=== PATIENT | female | born 1960 | race Caucasian/White ===

== ENCOUNTER 2021-11-25 15:00 | Emergency (ER) | payer BC, SELFPAY ==
[2021-11-25 15:01] VITALS: BP 153/87; PULSE 64; RESP 18; TEMP 36.6; O2SAT 96; BMI 24.1
--- NOTE | 2021-11-25 15:40 | ED.VIS.GI ---
HPI HPI - GI History of Present Illness Chief Complaint: GI Bleed Detail of Chief Complaint: Rectal bleeding today around 1:00. Prior history. Informant: patient Abdominal Pain/Flank Pain Onset: Today and Hours Context: Sudden Onset Timing: Intermittent Current Severity: Mild Maximum Severity: Mild Worsened by: Nothing Relieved by: Nothing Nausea/Vomiting/Emesis GI Symptom: Negative for Nausea or Vomiting Diarrhea/Melena/Hematochezia Stool Quality: Positive for Loose Associated Symptoms Associated Symptoms: Negative for Dysuria, Frequency or Hematuria Narrative Narrative: 61-year-old female status postcholecystectomy, appendectomy and hysterectomy. On no blood thinners or other medications. Denies past medical history. States today around 1:00 started having some rectal bleeding. No clots. Does not feel lightheaded or dizzy. At this within the last year without any significant work-up. Had a colonoscopy 20 years ago or so. Denies any blood thinners are on any medications. Denies any melena or hematemesis. Denies any fever. Prior similar symptoms: Yes Recent Illness/Hospitalization: No PFSH PFSH Medical History no medical history no medical history Allergy/AdvReac Type Severity Reaction Status Date / Time Sulfa (Sulfonamide Allergy Hives Verified 11/25/21 15:03 Antibiotics) Social History Smoking Status: Former smoker ROS ROS ED ROS Narrative Rectal bleeding. Review of Systems ROS Unobtainable: Denies due to encephalopathy Constitutional Constitutional ED: Denies chills or fever(s) Cardiovascular Cardiovascular: Denies chest pain Respiratory/Chest Respiratory/Chest: Denies cough or dyspnea Gastrointestinal Gastrointestinal: Reports abdominal pain and diarrhea; Denies constipation, melena, nausea or vomiting Genitourinary Genitourinary ED: Denies dysuria or hematuria Musculoskeletal Musculoskeletal: Denies arthralgias Integumentary Denies abscess Neurologic Neurologic: Denies headache(s) Psychiatric Psychiatric: Denies anxiety Endocrine Endocrinology: Denies polydipsia Hematologic/Lymphatic Hematologic/Lymphatic: Denies easy bleeding Allergic/Immunologic Allergic/Immunologic ED: Denies mouth swelling or tongue swelling EXAM Physical Exam Narrative Exam Narrative: Well-appearing 61-year-old female. Vital signs stable afebrile. H EENT exam unremarkable. Moist Riis members. Neck nontender lymphadenopathy. Lungs clear to auscultation. Heart regular rhythm rate about 65 no murmur. Abdomen soft nondistended normal bowel sounds no peritoneal signs. Moving all 4 extremities. Nontender. No edema. No bruising. Back nontender. Neurologic exam normal. All rectal exam performed with female nurse present in the room. She has several external hemorrhoids. They are not thrombosed. They are not actively bleeding. There is no dried blood. On rectal exam there is no stool and no bright red blood or melena. Const Vital Signs: 11/25/21 15:01 Temperature 97.9 F Temperature Source Temporal Pulse Rate 64 Respiratory Rate 18 Blood Pressure 153/87 H Blood Pressure Mean 109 Pulse Ox 96 Oxygen Delivery Method Room Air Positive well nourished and well developed; Negative for obese, cachectic, contractures or unkempt General Appearance ED: well developed and NAD; Negative for unkempt, cachectic, contractures or pallor Nutritional Appearance: Negative for cachectic or obese HEENT Reports moist mucous membranes normocephalic and atraumatic; Negative for trauma or tenderness Eyes PERRL and EOMs intact bilaterally General Eye ED: Negative for pale conjunctiva or scleral icterus Neck no lymphadenopathy, supple and no JVD General: Negative for tenderness Carotids: Negative for other Lymph Lymphatic: Negative for other Resp normal respiratory effort and clear to auscultation bilaterally Effort and Inspection: Negative for respiratory distress Auscultation: Negative for rales, rhonchi or wheezes Cardio regular rate, regular rhythm, S1 normal heart sound, S2 normal heart sound and no murmurs Rate: Negative for bradycardia or tachycardic Rhythm: Negative for abnormal rhythm GI non-tender, non-distended and no masses Inspection: Negative for abdominal distention Auscultation: normoactive bowel sounds Palpation: soft; Negative for tender Back/Spine no CVA tenderness General Back: Negative for CVA tenderness Cervical Spine: Negative for cervical spine tenderness Thoracic Spine / Upper Back: Negative for thoracic spinal tenderness Lumbar Spine / Lower Back: Negative for lumbar spinal tenderness Coccyx: Negative for other Extremity full ROM General Extremety ED: Negative for edema or tenderness General Extremity: Negative for edema Neuro CN's II-XII intact bilaterally and moves all extremities Sensorium / Orientation: alert, oriented to person, oriented to place and oriented to time; Negative for orientation impaired, confused, lethargic or stuporous Motor Exam: strength 5/5 throughout Psych mental status grossly normal and thought process normal Appearance: Negative for unkempt Attitude: No agitated Mood & Affect: Negative for depressed, anxious or tearful Skin no wounds General Skin Exam: Negative for jaundice or pallor Lesions: no lesions Rashes: no rashes Trauma: Negative for abrasion Nails: Negative for discolored MDM MDM MDM Narrative Medical decision making narrative: 61-year-old female with rectal bleeding. Sounds like a lower GI bleed. May be hemorrhoids versus colon versus other. Screening labs being obtained. Vital signs are stable. Repeat exam patient doing well. We discussed her lab test. She will be discharged home. Return if heavier bleeding, clots she will be discharged home. Return if heavier bleeding, clots or feels lightheaded or dizzy. Or feels lightheaded and dizzy. Outpatient follow-up with either GI or general surgery on-call. She may need colonoscopy. Lab Data Attestation: I reviewed the patient's lab results. Lab results narrative: CBC normal white count of 5. H&H of 14.5 and 43. Labs: Laboratory Results - last 24 hr 11/25/21 16:26 WBC 5.5 RBC 4.61 Hgb 14.5 Hct 43.6 MCV 94.6 MCH 31.5 MCHC 33.3 RDW Std Deviation 43.7 RDW Coeff of Yasir 12.6 Plt Count 257 MPV 9.7 Immature Gran % (Auto) 0.200 Neut % (Auto) 58.5 Lymph % (Auto) 27.6 Madison % (Auto) 10.7 H Eos % (Auto) 2.5 Baso % (Auto) 0.5 Absolute Neuts (auto) 3.2 Absolute Lymphs (auto) 1.52 Nucleated RBC % 0 Discharge Plan Triage Chief Complaint: GI Bleed ED Provider: Dominic Roy Dx/Rx/DC Orders Clinical Impression: Acute lower gastrointestinal bleeding Instructions: ED Hemorrhoids, ED Lower GI Bleeding (Stable) Primary Care Provider: Care Physician,No Primary Referrals: Asif Reynolds MD [Med Staff - Active Staff] - As soon as possible Friend,Jb DO [Med Staff - Active Staff] - As soon as possible NOT,DEFINED [Non-Staff] - Activity Restrictions/Additional Instructions: Your blood counts are normal. You have an external hemorrhoid but is not bleeding. You need to follow-up either with a GI doctor which is Dr. Carbone or a general surgeon which is Dr. Asif Reynolds for further evaluation and you may need a colonoscopy. Return if heavier bleeding or clots or if you feel lightheaded or dizzy. Disposition Disposition: Home, Self Care
[2021-11-25 16:46] LABS: Absolute Lymphocyte Count 1.52 X10^3/uL (0.83-4.51); Absolute Neutrophil Count 3.2 X10^3/uL (2.0-7.7); Basophil# 0.03 X10^3/uL; Basophil% 0.5 % (0-1); Eosinophil# 0.14 X10^3/uL; Eosinophils% 2.5 % (0-5); Hematocrit 43.6 % (37-47); Hemoglobin 14.5 g/dL (12.0-15.0); Lymphocyte # 1.52 X10^3/ul (0.83-4.51); Lymphocyte % 27.6 % (19-41); Mean Corp Hgb Conc 33.3 g/dL (32-36); Mean Corpuscular Hgb 31.5 pg (27.0-32.0); Mean Corpuscular Volume 94.6 fL (81-99); Mean Platelet Vol. 9.7 fl (6.2-12.0); Monocyte# 0.59 X10^3/uL; Monocyte% 10.7 % (0-10); NRBC Flagged by Analyzer 0 % (0-5); Neutrophil # 3.21 X10^3/uL (2.7-7.7); Neutrophil % 58.5 % (47-70); Platelet Count 257 K/mm3 (150-450); RBC Distribution Width CV 12.6 % (11.6-14.6); RBC Distribution Width SD 43.7 fl (35.1-43.9); Red Blood Count 4.61 M/mm3 (4.2-5.4); White Blood Count 5.5 K/mm3 (4.4-11.0)
--- NOTE | 2021-11-25 17:03 | CM.ED ---
SW met with patient. Per tracker patient has no insurance. TONI provided patient with [facility] Healthcare Directory. Patient reports that her MD Sunil Elliott retired and she has an appointment with a new provider, En[facility] in February. Resource provided. TONI remains available if further needs arise. Plan: Resources provided Melissa BROWNING
[2021-11-25 17:08] VITALS: RESP 16
[2021-11-25 17:28] LABS: AST(SGOT) 26 U/L (15-37); Alanine Aminotransfer ALT/SGPT 42 U/L (13-56); Alkaline Phosphatase 87 U/L (45-117); Anion Gap 6 (5-15); BUN 19 mg/dL (7-18); BUN/Creat Ratio 28.1 RATIO (10-20); Calcium,Total 9.4 mg/dL (8.5-10.1); Chloride 105 mmol/L (98-107); Creatinine, Serum 0.68 mg/dL (0.55-1.02); EST Glomerular Filtration Rate 94 mL/min (>60); Est Glom Filt Rate - Afr Amer 113 mL/min (>60); Estimated Creatinine Clearance 66.97 ml/min; Glucose 92 mg/dL (74-106); Potassium 4.1 mmol/L (3.5-5.1); Sodium Level 138 mmol/L (136-145)
== END 2021-11-25 17:10 | disposition home or self-care (01) ==
PROVIDERS: Emergency Provider Emergency Medicine; Visit Provider Emergency Medicine
DX: K92.2 Gastrointestinal hemorrhage, unspecified (principal); R10.9 Unspecified abdominal pain; R19.7 Diarrhea, unspecified; Z87.891 Personal history of nicotine dependence; Z90.49 Acquired absence of other specified parts of digestive tract
CPT/HCPCS: 80053; 85025; 99282; A4216

== ENCOUNTER → 2022-02-14 | Outpatient (CLI) | payer BC, SELFPAY ==
[2022-02-14 15:07] LABS: Absolute Lymphocyte Count 1.62 X10^3/uL (0.83-4.51); Absolute Neutrophil Count 2.9 X10^3/uL (2.0-7.7); Basophil# 0.01 X10^3/uL; Basophil% 0.2 % (0-1); Eosinophil# 0.08 X10^3/uL; Eosinophils% 1.5 % (0-5); Hematocrit 41.2 % (37-47); Hemoglobin 13.8 g/dL (12.0-15.0); Lymphocyte # 1.62 X10^3/ul (0.83-4.51); Lymphocyte % 31.2 % (19-41); Mean Corp Hgb Conc 33.5 g/dL (32-36); Mean Corpuscular Hgb 31.2 pg (27.0-32.0); Mean Corpuscular Volume 93.2 fL (81-99); Mean Platelet Vol. 10.1 fl (6.2-12.0); Monocyte# 0.58 X10^3/uL; Monocyte% 11.2 % (0-10); NRBC Flagged by Analyzer 0 % (0-5); Neutrophil % 55.7 % (47-70); Platelet Count 243 K/mm3 (150-450); RBC Distribution Width CV 12.4 % (11.6-14.6); RBC Distribution Width SD 42.6 fl (35.1-43.9); Red Blood Count 4.42 M/mm3 (4.2-5.4); White Blood Count 5.2 K/mm3 (4.4-11.0)
[2022-02-14 15:40] LABS: ALB/GLOB Ratio 1.2 RATIO (0.9-2.4); AST(SGOT) 29 U/L (15-37); Alanine Aminotransfer ALT/SGPT 51 U/L (13-56); Albumin, Serum 4.1 g/dL (3.2-5.0); Alkaline Phosphatase 90 U/L (45-117); Anion Gap 8 (5-15); BUN 11 mg/dL (7-18); BUN/Creat Ratio 16.6 RATIO (10-20); Calcium,Total 9.7 mg/dL (8.5-10.1); Chloride 105 mmol/L (98-107); Cholesterol 276 mg/dL (200); Creatinine, Serum 0.66 mg/dL (0.55-1.02); EST Glomerular Filtration Rate 96 mL/min (>60); Est Glom Filt Rate - Afr Amer 116 mL/min (>60); Globulin 3.5 g/dL (2.2-4.2); Glucose 85 mg/dL (74-106); High Density Lipoprotein 65 mg/dL; Potassium 3.9 mmol/L (3.5-5.1); Protein, Total 7.6 g/dL (6.4-8.2); Sodium Level 139 mmol/L (136-145); Thyroid Stim Hormone (TSH) 7.95 uIU/mL (0.358-3.74); Triglycerides 342 mg/dL; Very Low Density Lipoprotein 68 mg/dL (5-40)
[2022-02-15 14:22] LABS: T4 Free Direct 0.76 ng/dL (0.76-1.46)
== END | disposition home or self-care (01) ==
LOC: MFPLAB 12:05
PROVIDERS: PCP Family Medicine; Visit Provider Family Medicine
DX: Z00.00 Encounter for general adult medical examination without abnormal findings (principal); R79.89 Other specified abnormal findings of blood chemistry; K21.9 Gastro-esophageal reflux disease without esophagitis
CPT/HCPCS: 36415; 80053; 80061; 84432; 84439; 84443; 85025; 86376; 86800

== ENCOUNTER → 2022-03-07 | Outpatient (CLI) | payer BC, SELFPAY ==
--- NOTE | 2022-03-07 13:50 | ECHOD_ITS ---
Reason For Study: MURMUR Procedure This was a 2D Doppler, Color Flow transthoracic echocardiogram. Exam performed in department. Left Ventricle Normal LV size. Left ventricular systolic function is normal. The estimated ejection fraction is 55 %. Stage 1 diastolic dysfunction. No regional wall motion abnormalities noted. Right Ventricle Normal RV size. Normal systolic function. Atria Normal left atrium. Normal right atrium. Mitral Valve Normal mitral valve. Tricuspid Valve Normal tricuspid valve. Aortic Valve Trisinus/trileaflet aortic valve. Mild focal aortic valve calcification. Pulmonic Valve Normal pulmonic valve. Great Vessels Normal aortic root. The pulmonary artery is normal size. Normal inferior vena cava. Pericardium/Pleural No pericardial effusion. MMode/2D Measurements & Calculations LVIDd: 3.8 cm IVSd: 0.96 cm Ao root diam: 2.9 cm LVIDs: 2.4 cm LVPWd: 0.72 cm RVDd: 2.6 cm FS: 36.7 % LAV(MOD-bp): 25.1 ml LVAd ap4: 23.2 cm2 LVAd ap2: 20.1 cm2 LAV(MOD-bp) Indexed: 15.7 ml/m2 LVLd ap4: 7.8 cm LVLd ap2: 7.3 cm LAV(MOD-sp2): 28.4 ml EDV(MOD-sp4): 59.2 ml EDV(MOD-sp2): 47.0 ml LAV(MOD-sp4): 19.9 ml EDV(sp4-el): 58.5 ml EDV(sp2-el): 47.2 ml LVAs ap4: 13.9 cm2 LVAs ap2: 11.7 cm2 LVLs ap4: 6.3 cm LVLs ap2: 5.7 cm ESV(MOD-sp4): 27.3 ml ESV(MOD-sp2): 20.9 ml ESV(sp4-el): 25.8 ml ESV(sp2-el): 20.4 ml EF(MOD-sp4): 53.9 % EF(MOD-sp2): 55.6 % EF(sp4-el): 55.8 % SV(MOD-sp4): 31.9 ml SV(MOD-sp2): 26.1 ml SV(sp4-el): 32.7 ml LA dimension(2D): 2.8 cm LA A4 area: 10.4 cm2 RA A4 area: 10.9 cm2 Time Measurements MV dec time: 0.27 sec Doppler Measurements & Calculations MV E max darien: 74.6 cm/sec Med Peak E' Darien: 9.8 cm/sec MV A max darien: 91.1 cm/sec E/E' med: 7.6 MV dec slope: 278.5 cm/sec2 MV E/A: 0.82 Ao V2 max: 142.1 cm/sec LV V1 max: 90.9 cm/sec PA V2 max: 83.2 cm/sec Ao max P.1 mmHg LV V1 max P.3 mmHg PA max PG (full): 1.5 mmHg TR max darien: 217.1 cm/sec TR max P.9 mmHg ECHO/Echo Complete Interpretation Summary Normal LV size. Left ventricular systolic function is normal. The estimated ejection fraction is 55 %. Stage 1 diastolic dysfunction. Mild focal aortic valve calcification. Ordering Physician: Dylan Hansen Referring Physician: Dylan Hansen Performed By: Mónica Peña
== END | disposition home or self-care (01) ==
LOC: CVS 13:48
PROVIDERS: PCP Family Medicine; Visit Provider Family Medicine
DX: R01.1 Cardiac murmur, unspecified (principal)
CPT/HCPCS: 93306

== ENCOUNTER → 2022-03-09 | Outpatient (CLI) | payer BC, SELFPAY ==
--- NOTE | 2022-03-09 16:30 | CT_ITS ---
ACR Level 3 findings have been noted. An addendum which confirms receipt of the report will follow. INDICATION: Rectal bleeding, change in bowel pattern -- oral and IV EXAMINATION: CT ABDOMEN AND PELVIS WITH CONTRAST - CT Abdomen And Pelvis W/ Contrast Injection TECHNIQUE: Helically acquired images were obtained of the abdomen and pelvis following IV contrast. A radiation dose optimization technique was used for this scan. IV Contrast dosage and agent: 100 cc Isovue-370 Oral contrast: Redicat COMPARISON: None. FINDINGS: LOWER CHEST: Lung bases are clear. No cardiomegaly or pericardial effusion. LIVER: Homogeneous. No focal mass. GALLBLADDER AND BILIARY TREE: Prior cholecystectomy. No intra- or extrahepatic biliary ductal dilation. PANCREAS: No focal cystic or solid mass. SPLEEN: Normal size without focal cystic or solid mass. ADRENAL GLANDS: No nodules. KIDNEYS AND URETERS: Normal renal size and position. No hydronephrosis. PERITONEUM: No ascites or free air. No other fluid collection. BOWEL: Prior appendectomy. 6 cm ball of tightly packed contents in the stomach. Prominent thickening of the rugal folds in the distal gastric body and antrum. No stomach or bowel distension. Enteric contrast reaches the cecum. No focal inflammatory change. LYMPH NODES: No enlarged mesenteric or retroperitoneal lymph nodes. VESSELS: Aorta is non-dilated. URINARY BLADDER: Unremarkable. REPRODUCTIVE ORGANS: No pelvic masses. ABDOMINAL WALL: No discrete abdominal or pelvic wall hernia. BONES: Normal thoracolumbar vertebral alignment. CT/Abdomen/Pelvis WITH Contrast IMPRESSION: 1. Prominent thickening of the distal gastric rugal folds may represent acute gastroenteritis or less common entities such as giant hypertrophic gastritis, stomach cancer, Chiki-Lennon syndrome. Recommend upper endoscopy. 2. Normal appearance of the rectum. Electronically Signed: Thomas Arthur MD at 17:32 EST ,
== END | disposition home or self-care (01) ==
PROVIDERS: PCP Family Medicine; Visit Provider Nurse Practitioner Adult Health
DX: K62.5 Hemorrhage of anus and rectum (principal); R19.4 Change in bowel habit
CPT/HCPCS: 74177; Q9967

== ENCOUNTER 2022-05-01 12:27 | Day surgery (SDC) | payer BC, SELFPAY ==
[2022-05-01] VITALS (8 sets, daily range): BP systolic 110–137; BP diastolic 47–72; PULSE 51–73; RESP 16; TEMP 36.4–37.1; O2SAT 99–100; BMI 22.6
[2022-05-01] MEDS: Lactated Ringers 1,000 ML 15 ML IV (12:56)
--- NOTE | 2022-05-01 14:15 | IMM_PTH ---
PATIENT: HIMA RICHARDSON LOC: EN U#:[id number] AGE/SX: 61/F ROOM: RE05/01/[address]: Dr. Jb Carbone DO : 1960 BED: DIS: 05/01/2022 SPEC #: [id number] RECD: 05/02/22 09:06 STATUS: ZANA ADAM #: [id number] ROBBIE: 05/01/22 14:[address]: Jb Carbone DEPT: IMMUNOHISTOCHEMISTRY RECD BY: Danita York ENTERED: 05/02/22 09:06 SP TYPE: IMMUNO OTHR DR: Dr. Dylan Hansen MD Tissues: A - Stomach, NOS Procedures: H Pylori (initial) PHYSICIAN & INSTITUTION [place] [address] SPECIMEN INFORMATION: Tissue Source: A ? Gastric antrum Clinical Info: Rectal bleeding, food bolus Specimen Number: [id number] CPT code: 65508 METHODOLOGY: Deparaffinized sections of prefer/formalin-fixed tissue or PAP/DQ stained slides are incubated with monoclonal/polyclonal antibodies/oligonucleotide probes. Localization is made via biotin free immunoperoxidase method. Appropriate controls are performed and reacted as expected. Results on target cell population are indicated in the following table: RESULTS: ANTIBODY / CLONE RESULT Block A H Pylori (polyclonal) negative These tests were developed and their performance characteristics determined by [facility]. They may not have been cleared or approved by the U.S. Food and Drug Administration. The FDA has determined that such clearance or approval is not necessary. The above immunohistochemical/dualISH markers are ordered and reviewed by the Pathologist. INTERPRETATION: A. Gastric antrum, biopsy: Negative for Helicobacter pylori organisms. SJ:ciara 05/03/2022
--- NOTE | 2022-05-01 14:15 | COLBX_PTH ---
PATIENT: HIMA RICHARDSON LOC: EN U#:[id number] AGE/SX: 61/F ROOM: RE05/01/[address]: Dr. Jb Carbone DO : 1960 BED: DIS: 05/01/2022 SPEC #: [id number] RECD: 05/02/22 06:42 STATUS: ZANA ADAM #: [id number] ROBBIE: 05/01/22 14:[address]: Jb Carbone DEPT: SURGICAL PATHOLOGY RECD BY: Lulu Mahan ENTERED: 05/02/22 08:09 SP TYPE: COLON BX OTHR DR: Dr. Dylan Hansen MD Tissues: A - Gastric mucous membrane B - Esophagus, NOS C - Sigmoid colon biopsy Procedures: Special Stain Group II Surgery Specimen Level IV Alcian Blue/PAS (control) HEADER OPERATION: Colonoscopy, EGD ([facility]) with biopsy and polypectomy PRE-OP DIAGNOSIS: Rectal bleeding, food bolus TISSUE SUBMITTED: A - Gastric antrum for H. pylori and path, B - Distal esophagus, C - Polyp sigmoid MICROSCOPIC DIAGNOSIS A. Gastric antrum, biopsy: Mild gastritis. See microscopic description and comment. B. Distal esophagus, biopsy: A fragment of gastric mucosa with chronic inflammation. Intestinal metaplasia (goblet cell metaplasia) not identified. See comment. C. Polyp sigmoid, polypectomy: Tubular adenoma. SJ:ciara 05/03/2022 COMMENT A. The results of immunohistochemistry for Helicobacter pylori will be reported separately ([id number]). B. Alcian blue/PAS stain with matched control is used in the evaluation of the specimen. MICROSCOPIC DESCRIPTION Slides are reviewed. A. The specimen shows fragments of gastric mucosa with chronic inflammatory cell infiltrates in the lamina propria consisting of lymphocytes and plasma cells, consistent with mild chronic gastritis. GROSS DESCRIPTION A - Received in fixative is one container labeled with the patient's name and designated biopsy gastric antrum. The specimen consists of two irregular fragments of light rice soft tissue that in aggregate measure 0.4 x 0.3 x 0.1 cm. The specimen is totally submitted in one cassette. B - Received in fixative is one container labeled with the patient's name and designated biopsy distal esophagus. The specimen consists of one irregular fragment of light rcie soft tissue that measures 0.3 x 0.3 x 0.1 cm. The specimen is totally submitted in one cassette. C - Received in fixative is one container labeled with the patient's name and designated polyp sigmoid. The specimen consists of a rice-pink polyp measuring 0.6 x 0.5 x 0.3 cm. The specimen is totally submitted in one cassette. / SJ:ciara 05/02/2022 TC:1 CPT: 55163 x3, 28500
--- NOTE | 2022-05-01 15:09 | HP.PCM_ITS ---
History and Physical Date of Admission: 05/01/22 61 F who presents to the office today to establish with GI in order to obtain colonoscopy. General surgeon Dr Reynolds attempted colonoscopy in 11/2021 but had to abort due to tortuous colon. He did EGD 12/04/21--small hiatal hernia, gastritis; bxs reactive gastropathy, neg H pylori. Attempted colonoscopy, scope was advanced to sigmoid colon, procedure aborted due to tortuous colon. He reports quality of bowel prep was good. She had dulcolax and miralax prep--had severe abd pain and lower back pain in the night before colonoscopy. [place] poorly for 2 wks after endoscopies, nausea, belly pain--requests work note for after colonoscopy. Works at [employer]. Was seen at ED 11/25/21 for rectal bleeding. Gets lower abd cramping when the bleeding occurs. Describes flare ups, blood in stool, nausea and headache and sometimes lightheaded. Nausea resolves when not having bowel issues. Every morning she has multiple BMs, can be thinner than normal, or can be diarrhea. Hemorrhoids are exacerbated from frequent BMs. GI symptoms began with COVID infection in July 2021. Had horrible GI symptoms with COVID: nausea, vomiting, diarrhea, had blood per rectum then. No heartburn, acid reflux, dysphagia. Eats smaller more frequent meals in order to decrease diarrhea. Normal appetite. Denies early satiety. Eating bland foods, not really helping. No change in her weight. Feels flulike when she needs to have BM. Some relief with omeprazole 40 mg QAM Colonoscopy 20 yrs ago PSH appy, hysterectomy, cholecystectomy Exam Const General: cooperative and comfortable Nutritional Appearance: overweight Orientation: alert, awake and oriented x3 Eyes Sclera: sclerae normal Resp Effort & Inspection: normal respiratory effort GI Inspection: normal to inspection Palpation: soft, no hepatosplenomegaly, no masses and nontender Skin General: no rashes or lesions noted Neuro Gait: normal gait Psych Mood: congruent mood Quality Reporting Tobacco Screening ([facility] 138) Smoking Status: Former smoker Assessment and Plan Assessment and Plan (1) Rectal bleeding: ?Status:?Acute ?Plan: 61 yr old female with recurrent bright red blood per rectum, change in stools to thin caliber and increased frequency of BMs General surgeon at outside facility did EGD but had to abort colonoscopy due to tortuous colon Will get CT abd pel w/ oral and IV contrast Will have Dr Carbone do colonoscopy. Will use dulcolax and miralax prep, will give her rx for hyoscyamine in case she gets abd pain again (2) Change in bowel habits: ?Status:?Acute ?Plan: see above ? ? ? Orders: Orders Abdomen/Pelvis WITH Contrast 02/27/22 K62.5 - Hemorrhage of anus and rectum, R19.4 - Change in bowel habit ? Medications: New hyoscyamine sulfate 0.125 mg? PO BID-QID PRN 30 tabs 0RF abd ominal pain ? ? I have examined the patient and the H&P has been reviewed. There are no clinical changes since date of exam.
--- NOTE | 2022-05-01 15:55 | OP.CCLET_ITS ---
05/01/2022 Dylan Hansen [address] [place] [address] Re : Upper GI endoscopy procedure for Calista Wharton Dear Dr. Hansen This procedure was performed on Sunday, May 01, 2022. My impressions and recommendations are as follows: Impressions : - Z-line irregular, 39 cm from the incisors. Biopsied. - Small hiatal hernia. - Bile gastritis. Biopsied. - Normal second portion of the duodenum. Recommendations : - Await pathology results. - Continue present medications. My findings are described in the full procedure note, which is enclosed. If I can be of further assistance, please feel free to contact me at . Sincerely, Jb Carbone, 05/01/2022 3:55:17 PM This report has been signed electronically.
--- NOTE | 2022-05-01 15:55 | OP.EGD_ITS ---
Patient Name: Calista Wharton Procedure Date: 05/01/2022 3:06 PM Date of : 1960 Age: 61 Procedure: Upper GI endoscopy Indications: Epigastric abdominal pain, Heartburn Providers: Jb Carbone DO Referring MD: Dylan Hansen Medicines: Monitored Anesthesia Care Patient Profile: This is a 61 year old female. Refer to note in patient chart for documentation of history and physical. Patient has symptoms of chronic epigastric abdominal pain, chronic dyspepsia and chronic heartburn. Complications: No immediate complications. Procedure: Pre-Anesthesia Assessment: - Prior to the procedure, a History and Physical was performed, and patient medications and allergies were reviewed. The risks and benefits of the procedure and the sedation options and risks were discussed with the patient. All questions were answered and informed consent was obtained. Patient identification and proposed procedure were verified by the physician. Mental Status Examination: alert and oriented. Respiratory Examination: clear to auscultation. CV Examination: normal. Prophylactic Antibiotics: The patient does not require prophylactic antibiotics. Prior Anticoagulants: The patient has taken no previous anticoagulant or antiplatelet agents. ASA Grade Assessment: II - A patient with mild systemic disease. After reviewing the risks and benefits, the patient was deemed in satisfactory condition to undergo the procedure. The anesthesia plan was to use monitored anesthesia care (MAC). Immediately prior to administration of medications, the patient was re-assessed for adequacy to receive sedatives. The heart rate, respiratory rate, oxygen saturations, blood pressure, adequacy of pulmonary ventilation, and response to care were monitored throughout the procedure. The physical status of the patient was re-assessed after the procedure. After obtaining informed consent, the endoscope was passed under direct vision. Throughout the procedure, the patient's blood pressure, pulse, and oxygen saturations were monitored continuously. The Colonoscope was introduced through the mouth, and advanced to the second part of duodenum. The upper GI endoscopy was accomplished with ease. The patient tolerated the procedure well. Scope In: 3:15:57 PM Scope Out: 3:18:29 PM Total Procedure Duration Time 0 hours 2 minutes 32 seconds Findings: The Z-line was irregular and was found 39 cm from the incisors. Biopsies were taken with a cold forceps for histology. Verification of patient identification for the specimen was done. Estimated blood loss was minimal. A small hiatal hernia was present. Patchy moderate inflammation characterized by erosions and erythema was found in the stomach. Biopsies were taken with a cold forceps for histology. The second portion of the duodenum was normal. Impression: - Z-line irregular, 39 cm from the incisors. Biopsied. - Small hiatal hernia. - Bile gastritis. Biopsied. - Normal second portion of the duodenum. Recommendation: - Await pathology results. - Continue present medications. Procedure Code(s): --- Professional --- 22081, Esophagogastroduodenoscopy, flexible, transoral; with biopsy, single or multiple CPT copyright 2017 [employer]. All rights reserved. The codes documented in this report are preliminary and upon afterschool babysitter review may be revised to meet current compliance requirements. Jb Carbone DO 05/01/2022 3:55:17 PM This report has been signed electronically. Number of Addenda: 0 Note Initiated On: 05/01/2022 3:06 PM
--- NOTE | 2022-05-01 16:02 | OP.COLON_ITS ---
Patient Name: Calista Wharton Procedure Date: 05/01/2022 3:18 PM Date of : 1960 Age: 61 Procedure: Colonoscopy Indications: Screening for colorectal malignant neoplasm Providers: DO Delio Mayorga MD: Dylan Hansen Medicines: Monitored Anesthesia Care Patient Profile: This is a 61 year old female. Refer to note in patient chart for documentation of history and physical. Patient has symptoms of chronic epigastric abdominal pain, chronic dyspepsia and chronic heartburn. Last Colonoscopy: 5 years ago. Complications: No immediate complications. Procedure: Pre-Anesthesia Assessment: - Prior to the procedure, a History and Physical was performed, and patient medications and allergies were reviewed. The risks and benefits of the procedure and the sedation options and risks were discussed with the patient. All questions were answered and informed consent was obtained. Patient identification and proposed procedure were verified by the physician. Mental Status Examination: alert and oriented. Respiratory Examination: clear to auscultation. CV Examination: normal. Prophylactic Antibiotics: The patient does not require prophylactic antibiotics. Prior Anticoagulants: The patient has taken no previous anticoagulant or antiplatelet agents. ASA Grade Assessment: II - A patient with mild systemic disease. After reviewing the risks and benefits, the patient was deemed in satisfactory condition to undergo the procedure. The anesthesia plan was to use monitored anesthesia care (MAC). Immediately prior to administration of medications, the patient was re-assessed for adequacy to receive sedatives. The heart rate, respiratory rate, oxygen saturations, blood pressure, adequacy of pulmonary ventilation, and response to care were monitored throughout the procedure. The physical status of the patient was re-assessed after the procedure. After I obtained informed consent, the scope was passed under direct vision. Throughout the procedure, the patient's blood pressure, pulse, and oxygen saturations were monitored continuously. The Colonoscope was introduced through the anus and advanced to the terminal ileum. The colonoscopy was performed without difficulty. The patient tolerated the procedure well. The quality of the bowel preparation was good. Scope In: 3:21:05 PM Scope Withdrawal Time 0 hours 15 minutes 15 seconds Scope Out: 3:47:04 PM Total Procedure Duration Time 0 hours 25 minutes 59 seconds Findings: The perianal and digital rectal examinations were normal. A 9 mm polyp was found in the sigmoid colon. The polyp was sessile. The polyp was removed with a hot snare. Resection and retrieval were complete. Verification of patient identification for the specimen was done. Estimated blood loss was minimal. A single small localized angiodysplastic lesion with bleeding was found in the cecum. Coagulation for hemostasis using heater probe was successful. Estimated blood loss was minimal. A few small-mouthed diverticula were found in the sigmoid colon. Impression: - One 9 mm polyp in the sigmoid colon, removed with a hot snare. Resected and retrieved. - A single bleeding colonic angiodysplastic lesion. Treated with a heater probe. Recommendation: - Discharge patient to home. - Resume previous diet. - Continue present medications. - Await pathology results. - Repeat colonoscopy in 5 years for surveillance. - Return to GI office. Procedure Code(s): --- Professional --- 54065, 59, Colonoscopy, flexible; with control of bleeding, any method 62408, Colonoscopy, flexible; with removal of tumor(s), polyp(s), or other lesion(s) by snare technique CPT copyright 2017 [employer]. All rights reserved. The codes documented in this report are preliminary and upon photographer still review may be revised to meet current compliance requirements. Jb Carbone DO 05/01/2022 4:01:38 PM This report has been signed electronically. Number of Addenda: 0 Note Initiated On: 05/01/2022 3:18 PM
--- NOTE | 2022-05-01 16:03 | OP.CCLET_ITS ---
05/01/2022 Dylan Hansen [address] [place] [address] Re : Colonoscopy procedure for Calista Wharton Dear Dr. Hansen This procedure was performed on Sunday, May 01, 2022. My impressions and recommendations are as follows: Impressions : - One 9 mm polyp in the sigmoid colon, removed with a hot snare. Resected and retrieved. - A single bleeding colonic angiodysplastic lesion. Treated with a heater probe. Recommendations : - Discharge patient to home. - Resume previous diet. - Continue present medications. - Await pathology results. - Repeat colonoscopy in 5 years for surveillance. - Return to GI office. My findings are described in the full procedure note, which is enclosed. If I can be of further assistance, please feel free to contact me at . Sincerely, Jb Carbone, 05/01/2022 4:01:38 PM This report has been signed electronically.
== END 2022-05-01 17:00 | disposition home or self-care (01) ==
LOC: EN 12:31 → AC 12:31
PROVIDERS: PCP Family Medicine; Referring Provider Family Medicine; Visit Provider Internal Medicine Gastroenterology
PROC: 0DJD8ZZ Inspection of Lower Intestinal Tract, Via Natural or Artificial Opening Endoscopic (ICD-10-PCS; CPT 45378; principal; 2022-05-01 14:10)
DX: Z12.11 Encounter for screening for malignant neoplasm of colon (principal); D12.5 Benign neoplasm of sigmoid colon; K62.5 Hemorrhage of anus and rectum; K44.9 Diaphragmatic hernia without obstruction or gangrene; K29.70 Gastritis, unspecified, without bleeding; Z87.891 Personal history of nicotine dependence; E03.9 Hypothyroidism, unspecified; K21.9 Gastro-esophageal reflux disease without esophagitis; Z79.890 Hormone replacement therapy; Z79.899 Other long term (current) drug therapy; Z87.19 Personal history of other diseases of the digestive system
CPT/HCPCS: 43239; 45385; 45382; 88305; 88313; 88342; J7120; J2405

== ENCOUNTER → 2022-06-28 | Outpatient (CLI) | payer BC, SELFPAY ==
[2022-06-28 12:12] LABS: Absolute Lymphocyte Count 1.64 X10^3/uL (0.83-4.51); Absolute Neutrophil Count 2.5 X10^3/uL (2.0-7.7); Basophil# 0.03 X10^3/uL; Basophil% 0.6 % (0-1); Hematocrit 42.7 % (37-47); Hemoglobin 13.7 g/dL (12.0-15.0); Lymphocyte # 1.64 X10^3/ul (0.83-4.51); Lymphocyte % 33.5 % (19-41); Mean Corp Hgb Conc 32.1 g/dL (32-36); Mean Corpuscular Hgb 30.2 pg (27.0-32.0); Mean Corpuscular Volume 94.3 fL (81-99); Monocyte# 0.56 X10^3/uL; Monocyte% 11.4 % (0-10); NRBC Flagged by Analyzer 0 % (0-5); Neutrophil # 2.54 X10^3/uL (2.7-7.7); Neutrophil % 51.9 % (47-70); Platelet Count 259 K/mm3 (150-450); RBC Distribution Width CV 12.4 % (11.6-14.6); RBC Distribution Width SD 42.7 fl (35.1-43.9); Red Blood Count 4.53 M/mm3 (4.2-5.4); White Blood Count 4.9 K/mm3 (4.4-11.0)
[2022-06-28 12:42] LABS: ALB/GLOB Ratio 1.1 RATIO (0.9-2.4); AST(SGOT) 27 U/L (15-37); Alanine Aminotransfer ALT/SGPT 39 U/L (13-56); Albumin, Serum 3.9 g/dL (3.2-5.0); Alkaline Phosphatase 91 U/L (45-117); Anion Gap 8 (5-15); BUN 11 mg/dL (7-18); BUN/Creat Ratio 16.2 RATIO (10-20); Calcium,Total 9.3 mg/dL (8.5-10.1); Chloride 106 mmol/L (98-107); Cholesterol 254 mg/dL (200); Creatinine, Serum 0.68 mg/dL (0.55-1.02); EST Glomerular Filtration Rate 93 mL/min (>60); Est Glom Filt Rate - Afr Amer 112 mL/min (>60); Globulin 3.6 g/dL (2.2-4.2); Glucose 86 mg/dL (74-106); High Density Lipoprotein 62 mg/dL; Potassium 3.8 mmol/L (3.5-5.1); Protein, Total 7.5 g/dL (6.4-8.2); Sodium Level 138 mmol/L (136-145); T4 Free Direct 0.98 ng/dL (0.76-1.46); Thyroid Stim Hormone (TSH) 3.03 uIU/mL (0.358-3.74); Triglycerides 301 mg/dL; Very Low Density Lipoprotein 60 mg/dL (5-40)
== END | disposition home or self-care (01) ==
LOC: MFPLAB 10:37
PROVIDERS: PCP Family Medicine; Visit Provider Family Medicine
DX: K21.9 Gastro-esophageal reflux disease without esophagitis (principal); E78.00 Pure hypercholesterolemia, unspecified; E06.3 Autoimmune thyroiditis
CPT/HCPCS: 36415; 80053; 80061; 84439; 84443; 85025

== ENCOUNTER → 2022-06-28 | Outpatient (CLI) | payer BC, SELFPAY ==
--- NOTE | 2022-06-28 11:24 | CT_ITS ---
STUDY: CT ABDOMEN AND PELVIS WITH CONTRAST REASON FOR EXAM: Female, 61 years old. Diverticulitis. Left lower quadrant pain. Rectal bleeding. RADIATION DOSAGE (If Supplied By Facility): CTDIvol = ( 9.24 ) mGy, DLP = ( 308.30 ) mGycm TECHNIQUE: Transaxial images were obtained from the dome of the diaphragm to the symphysis pubis with oral contrast. Oral and amp; IV Gastrografin and amp; 75mL Isovue-300 was administered. Sagittal and coronal images were reconstructed. Individualized dose optimization techniques were used for this CT. COMPARISON: Comparison is made with prior study dated March 09, 2022. FINDINGS: Minimal increased linear markings in the anterior aspect of the right middle lobe suggestive of a linear atelectasis. Coronary artery calcification. Normal liver. There are surgical clips in the gallbladder fossa consistent with a prior cholecystectomy. Normal spleen. Normal pancreas. Normal bilateral adrenal glands. Normal right kidney. Normal left kidney. Normal visualized stomach. Normal small intestine. Normal colon. There is non-visualization of the appendix. There is scattered atherosclerotic calcification of the abdominal aorta, without a demonstrated aneurysm. Normal inferior vena cava. Normal retroperitoneum. Normal urinary bladder. There is absence of the uterus consistent with a prior hysterectomy. There is a small umbilical hernia containing fat. This space narrowing and disc degeneration at the L5-S1 level. Loss of the normal lumbar lordosis. CT/Abdomen/Pelvis WITH Contrast IMPRESSION: No acute abnormalities. Status post cholecystectomy. Status post hysterectomy. Electronically Signed: Adin Be MD at 14:49 EDT ,
== END | disposition home or self-care (01) ==
LOC: CT 11:21
PROVIDERS: PCP Family Medicine; Referring Provider Family Medicine; Visit Provider Family Medicine
DX: K57.92 Diverticulitis of intestine, part unspecified, without perforation or abscess without bleeding (principal)
CPT/HCPCS: 74177; Q9967

== ENCOUNTER → 2023-01-18 | Outpatient (CLI) | payer BC, SELFPAY ==
[2023-01-18 10:16] LABS: Absolute Lymphocyte Count 1.66 X10^3/uL (0.83-4.51); Absolute Neutrophil Count 2.5 X10^3/uL (2.0-7.7); Basophil# 0.02 X10^3/uL; Basophil% 0.4 % (0-1); Eosinophil# 0.09 X10^3/uL; Eosinophils% 1.8 % (0-5); Hemoglobin 13.6 g/dL (12.0-15.0); Lymphocyte # 1.66 X10^3/ul (0.83-4.51); Mean Corp Hgb Conc 31.6 g/dL (32-36); Mean Corpuscular Hgb 30.1 pg (27.0-32.0); Mean Corpuscular Volume 95.1 fL (81-99); Monocyte% 12.3 % (0-10); NRBC Flagged by Analyzer 0 % (0-5); Neutrophil % 51.3 % (47-70); Platelet Count 272 K/mm3 (150-450); RBC Distribution Width CV 12.4 % (11.6-14.6); Red Blood Count 4.52 M/mm3 (4.2-5.4); White Blood Count 4.9 K/mm3 (4.4-11.0)
[2023-01-18 10:56] LABS: ALB/GLOB Ratio 1.1 RATIO (0.9-2.4); AST(SGOT) 21 U/L (15-37); Alanine Aminotransfer ALT/SGPT 38 U/L (13-56); Alkaline Phosphatase 84 U/L (45-117); Anion Gap 5 (5-15); BUN 15 mg/dL (7-18); Calcium,Total 9.3 mg/dL (8.5-10.1); Chloride 104 mmol/L (98-107); Cholesterol 256 mg/dL (200); Creatinine, Serum 0.65 mg/dL (0.55-1.02); EST Glomerular Filtration Rate 97 mL/min (>60); Est Glom Filt Rate - Afr Amer 118 mL/min (>60); Globulin 3.8 g/dL (2.2-4.2); Glucose 66 mg/dL (74-106); High Density Lipoprotein 67 mg/dL; Protein, Total 7.8 g/dL (6.4-8.2); Sodium Level 137 mmol/L (136-145); T4 Free Direct 0.91 ng/dL (0.76-1.46); Thyroid Stim Hormone (TSH) 5.26 uIU/mL (0.358-3.74); Triglycerides 298 mg/dL; Very Low Density Lipoprotein 60 mg/dL (5-40)
== END | disposition home or self-care (01) ==
LOC: MFPLAB 08:48
PROVIDERS: PCP Family Medicine; Visit Provider Family Medicine
DX: E06.3 Autoimmune thyroiditis (principal); E78.00 Pure hypercholesterolemia, unspecified; R35.0 Frequency of micturition
CPT/HCPCS: 36415; 80053; 80061; 84439; 84443; 85025; 87086

== ENCOUNTER → 2023-07-23 | Outpatient (CLI) | payer OTHER, SELFPAY ==
--- NOTE | 2023-07-23 14:43 | RAD_ITS ---
INDICATION: PAIN EXAMINATION/TECHNIQUE: X-RAY - LEFT XR Knee 3 Views 3 VIEWS COMPARISON: No relevant prior comparison study available FINDINGS: SOFT TISSUES: No soft tissue swelling or gas. No radiopaque foreign body. BONES/JOINTS: No acute fracture or subluxation.. Normal alignment. Preservation of the joint space.. No sclerotic or destructive changes observed. RAD/Knee 3 Views IMPRESSION: 1. No evidence fracture, malalignment or focal bony or joint space abnormality. Electronically Signed: Dung Bazan MD at 19:08 EDT ,
--- NOTE | 2023-07-23 14:44 | RAD_ITS ---
INDICATION: KNEE PAIN EXAMINATION/TECHNIQUE: X-RAY - RIGHT XR Knee 3 Views 3 VIEWS COMPARISON: FINDINGS: SOFT TISSUES: No soft tissue swelling or gas. No radiopaque foreign body. BONES/JOINTS: No acute fracture or subluxation.. Normal alignment. Preservation of the joint space.. No sclerotic or destructive changes observed. RAD/Knee 3 Views IMPRESSION: Negative. Electronically Signed: Jarett Jacobson DO at 17:56 EDT ,
[2023-07-23 18:02] LABS: Absolute Lymphocyte Count 1.76 X10^3/uL (0.83-4.51); Absolute Neutrophil Count 2.7 X10^3/uL (2.0-7.7); Basophil# 0.02 X10^3/uL; Basophil% 0.4 % (0-1); Eosinophil# 0.11 X10^3/uL; Eosinophils% 2.1 % (0-5); Hematocrit 41.7 % (37-47); Hemoglobin 13.4 g/dL (12.0-15.0); Lymphocyte # 1.76 X10^3/ul (0.83-4.51); Lymphocyte % 33.7 % (19-41); Mean Corp Hgb Conc 32.1 g/dL (32-36); Mean Corpuscular Hgb 30.4 pg (27.0-32.0); Mean Corpuscular Volume 94.6 fL (81-99); Monocyte% 11.5 % (0-10); NRBC Flagged by Analyzer 0 % (0-5); Neutrophil # 2.71 X10^3/uL (2.7-7.7); Neutrophil % 51.9 % (47-70); Platelet Count 258 K/mm3 (150-450); RBC Distribution Width CV 12.5 % (11.6-14.6); RBC Distribution Width SD 43.7 fl (35.1-43.9); Red Blood Count 4.41 M/mm3 (4.2-5.4); White Blood Count 5.2 K/mm3 (4.4-11.0)
[2023-07-23 18:29] LABS: ALB/GLOB Ratio 1.1 RATIO (0.9-2.4); AST(SGOT) 20 U/L (15-37); Alanine Aminotransfer ALT/SGPT 38 U/L (13-56); Albumin, Serum 3.9 g/dL (3.2-5.0); Alkaline Phosphatase 85 U/L (45-117); Anion Gap 7 (5-15); BUN 17 mg/dL (7-18); BUN/Creat Ratio 25.3 RATIO (10-20); Calcium,Total 9.4 mg/dL (8.5-10.1); Chloride 103 mmol/L (98-107); Creatinine, Serum 0.67 mg/dL (0.55-1.02); EST Glomerular Filtration Rate 94 mL/min (>60); Est Glom Filt Rate - Afr Amer 113 mL/min (>60); Globulin 3.4 g/dL (2.2-4.2); Glucose 108 mg/dL (74-106); Potassium 3.9 mmol/L (3.5-5.1); Protein, Total 7.3 g/dL (6.4-8.2); Sodium Level 137 mmol/L (136-145); T4 Free Direct 1.13 ng/dL (0.76-1.46); Thyroid Stim Hormone (TSH) 0.59 uIU/mL (0.358-3.74)
[2023-07-24 12:33] LABS: Hemoglobin A1c 5.4 % (3.8-5.6)
== END | disposition home or self-care (01) ==
LOC: MTLAB 14:42
PROVIDERS: PCP Family Medicine; Referring Provider Family Medicine; Visit Provider Family Medicine
DX: M25.561 Pain in right knee (principal); M25.562 Pain in left knee; R73.09 Other abnormal glucose; E06.3 Autoimmune thyroiditis
CPT/HCPCS: 36415; 73562; 80053; 83036; 84439; 84443; 85025

== ENCOUNTER → 2024-02-04 | Outpatient (CLI) | payer OTHER, MEDICARE, SELFPAY ==
[2024-02-04 15:08] LABS: Absolute Lymphocyte Count 1.02 X10^3/uL (0.83-4.51); Absolute Neutrophil Count 2.7 X10^3/uL (2.0-7.7); Basophil# 0.02 X10^3/uL; Basophil% 0.4 % (0-1); Eosinophils% 2.2 % (0-5); Hematocrit 39.5 % (37-47); Lymphocyte # 1.02 X10^3/ul (0.83-4.51); Lymphocyte % 22.9 % (19-41); Mean Corp Hgb Conc 32.9 g/dL (32-36); Mean Corpuscular Hgb 30.8 pg (27.0-32.0); Mean Corpuscular Volume 93.6 fL (81-99); Mean Platelet Vol. 10.2 fl (6.2-12.0); Monocyte# 0.64 X10^3/uL; Monocyte% 14.4 % (0-10); NRBC Flagged by Analyzer 0 % (0-5); Neutrophil # 2.66 X10^3/uL (2.7-7.7); Neutrophil % 59.9 % (47-70); Platelet Count 223 K/mm3 (150-450); RBC Distribution Width CV 12.4 % (11.6-14.6); RBC Distribution Width SD 42.8 fl (35.1-43.9); Red Blood Count 4.22 M/mm3 (4.2-5.4); White Blood Count 4.5 K/mm3 (4.4-11.0)
[2024-02-04 15:37] LABS: AST(SGOT) 19 U/L (15-37); Alanine Aminotransfer ALT/SGPT 40 U/L (13-56); Albumin, Serum 3.6 g/dL (3.2-5.0); Alkaline Phosphatase 91 U/L (45-117); Anion Gap 6 (5-15); BUN 13 mg/dL (7-18); BUN/Creat Ratio 19.9 RATIO (10-20); Calcium,Total 9.4 mg/dL (8.5-10.1); Chloride 104 mmol/L (98-107); Cholesterol 210 mg/dL (200); Creatinine, Serum 0.65 mg/dL (0.55-1.02); EST Glomerular Filtration Rate 97 mL/min (>60); Est Glom Filt Rate - Afr Amer 117 mL/min (>60); Globulin 3.6 g/dL (2.2-4.2); Glucose 103 mg/dL (74-106); High Density Lipoprotein 61 mg/dL; Potassium 3.9 mmol/L (3.5-5.1); Protein, Total 7.2 g/dL (6.4-8.2); Sodium Level 137 mmol/L (136-145); Triglycerides 313 mg/dL; Very Low Density Lipoprotein 63 mg/dL (5-40)
[2024-02-04 16:21] LABS: Hemoglobin A1c 5.4 % (3.8-5.6)
== END | disposition home or self-care (01) ==
LOC: MFPLAB 12:11
PROVIDERS: PCP Family Medicine; Referring Provider Family Medicine; Visit Provider Family Medicine
DX: E06.3 Autoimmune thyroiditis (principal); E78.00 Pure hypercholesterolemia, unspecified; R73.09 Other abnormal glucose
CPT/HCPCS: 36415; 80053; 80061; 83036; 84439; 84443; 85025

== ENCOUNTER → 2024-03-12 | Outpatient (CLI) | payer MEDICARE, SELFPAY | END | disposition home or self-care (01) | PROVIDERS: PCP Family Medicine | DX: R68.89 Other general symptoms and signs (principal) ==

== ENCOUNTER → 2024-03-20 | Outpatient (CLI) | payer MEDICARE, SELFPAY ==
--- NOTE | 2024-03-20 11:06 | RAD_ITS ---
PROCEDURE: ACUTE ABDOMEN INC CHEST REASON FOR EXAM: Pain. TECHNIQUE: PA chest and three-view supine and upright abdomen. COMPARISON: [employer] from the CT examination of 06/28/2022. RAD/Acute Abdomen Inc Chest IMPRESSION: The cardiomediastinal silhouette is within the normal range for age. Lungs appear clear throughout. No pleural effusion or pneumothorax is evident. No evidence of pneumoperitoneum. Right upper quadrant abdominal surgical clips are seen. The bowel-gas pattern is essentially within the normal range. No excess stool burden is noted. No mass or mass effect is seen. [id number] degenerative changes of the spine are seen, along with reverse S shaped thoracolumbar scoliosis. Mild sacroiliac joint degenerative changes are noted. Reading Location: [id number]
[2024-03-20 12:50] LABS: Absolute Lymphocyte Count 1.55 X10^3/uL (0.83-4.51); Absolute Neutrophil Count 2.5 X10^3/uL (2.0-7.7); Basophil# 0.02 X10^3/uL; Basophil% 0.4 % (0-1); Eosinophil# 0.14 X10^3/uL; Hematocrit 41.5 % (37-47); Hemoglobin 13.1 g/dL (12.0-15.0); Lymphocyte # 1.55 X10^3/ul (0.83-4.51); Lymphocyte % 32.7 % (19-41); Mean Corp Hgb Conc 31.6 g/dL (32-36); Mean Corpuscular Hgb 29.8 pg (27.0-32.0); Mean Corpuscular Volume 94.5 fL (81-99); Mean Platelet Vol. 10.3 fl (6.2-12.0); Monocyte# 0.54 X10^3/uL; Monocyte% 11.4 % (0-10); NRBC Flagged by Analyzer 0 % (0-5); Neutrophil # 2.46 X10^3/uL (2.7-7.7); Neutrophil % 51.9 % (47-70); Platelet Count 238 K/mm3 (150-450); RBC Distribution Width CV 12.3 % (11.6-14.6); RBC Distribution Width SD 42.5 fl (35.1-43.9); Red Blood Count 4.39 M/mm3 (4.2-5.4); White Blood Count 4.7 K/mm3 (4.4-11.0)
[2024-03-20 14:08] LABS: ALB/GLOB Ratio 1.2 RATIO (0.9-2.4); AST(SGOT) 18 U/L (15-37); Alanine Aminotransfer ALT/SGPT 37 U/L (13-56); Albumin, Serum 3.9 g/dL (3.2-5.0); Alkaline Phosphatase 86 U/L (45-117); Anion Gap 7 (5-15); BUN 9 mg/dL (7-18); BUN/Creat Ratio 14.1 RATIO (10-20); Chloride 106 mmol/L (98-107); Creatinine, Serum 0.64 mg/dL (0.55-1.02); EST Glomerular Filtration Rate 99 mL/min (>60); Est Glom Filt Rate - Afr Amer 120 mL/min (>60); Globulin 3.2 g/dL (2.2-4.2); Glucose 98 mg/dL (74-106); Magnesium 2.3 mg/dL (1.6-2.6); Potassium 3.9 mmol/L (3.5-5.1); Protein, Total 7.1 g/dL (6.4-8.2); Sodium Level 141 mmol/L (136-145)
[2024-03-24 15:07] LABS: Fats, Neutral Normal (.); Fats, Total Normal (.)
== END | disposition home or self-care (01) ==
PROVIDERS: PCP Family Medicine; Referring Provider Family Medicine; Visit Provider Family Medicine
DX: R10.9 Unspecified abdominal pain (principal); R19.7 Diarrhea, unspecified
CPT/HCPCS: 36415; 74022; 80053; 82705; 83630; 83735; 85025; 87177; 87209; 87493

== ENCOUNTER → 2024-07-30 | Outpatient (CLI) | payer MEDICARE, SELFPAY ==
[2024-07-30 18:08] LABS: Cholesterol 229 mg/dL (<=200); High Density Lipoprotein 64 mg/dL; Low Density Lipoprotein Calc. 107 mg/dL; Triglycerides 291 mg/dL; Very Low Density Lipoprotein 58 mg/dL (5-40); cholesterol:hdl ratio screen 3.61
[2024-07-30 18:35] LABS: Absolute Lymphocyte Count 1.48 X10^3/uL (0.83-4.51); Absolute Neutrophil Count 2.6 X10^3/uL (2.0-7.7); Basophil# 0.02 X10^3/uL; Basophil% 0.4 % (0-1); Hematocrit 39.9 % (37-47); Hemoglobin 13.2 g/dL (12.0-15.0); Lymphocyte # 1.48 X10^3/ul (0.83-4.51); Lymphocyte % 30.2 % (19-41); Mean Corp Hgb Conc 33.1 g/dL (32-36); Mean Corpuscular Hgb 31.5 pg (27.0-32.0); Mean Corpuscular Volume 95.2 fL (81-99); Mean Platelet Vol. 10.5 fl (6.2-12.0); Monocyte# 0.67 X10^3/uL; Monocyte% 13.7 % (0-10); NRBC Flagged by Analyzer 0 % (0-5); Neutrophil # 2.61 X10^3/uL (2.7-7.7); Neutrophil % 53.3 % (47-70); Platelet Count 279 K/mm3 (150-450); RBC Distribution Width CV 12.5 % (11.6-14.6); RBC Distribution Width SD 43.5 fl (35.1-43.9); Red Blood Count 4.19 M/mm3 (4.2-5.4); White Blood Count 4.9 K/mm3 (4.4-11.0)
[2024-07-30 18:52] LABS: ALB/GLOB Ratio 1.7 RATIO (0.9-2.4); AST(SGOT) 24 U/L (<=31); Alanine Aminotransfer ALT/SGPT 27 U/L (<=34); Albumin, Serum 4.5 g/dL (3.4-4.8); Alkaline Phosphatase 87 U/L (35-104); Anion Gap 12 (5-15); BUN 16 mg/dL (4-19); BUN/Creat Ratio 25.2 RATIO (10-20); Calcium,Total 9.3 mg/dL (7.6-11.0); Carbon Dioxide 24.5 mmol/L (21.0-32.0); Chloride 104 mmol/L (98-108); Creatinine, Serum 0.65 mg/dL (0.70-1.20); EST Glomerular Filtration Rate 98 (>60); Globulin 2.6 g/dL (2.2-4.2); Glucose 84 mg/dL (70-99); Potassium 3.9 mmol/L (3.3-5.1); Protein, Total 7.1 g/dL (5.9-8.4); Sodium Level 140 mmol/L (133-145); Total Bilirubin 0.42 mg/dL (0.00-1.30)
== END | disposition home or self-care (01) ==
LOC: MFPLAB 14:22
PROVIDERS: PCP Family Medicine; Referring Provider Family Medicine; Visit Provider Family Medicine
DX: E06.3 Autoimmune thyroiditis (principal)
CPT/HCPCS: 36415; 80053; 80061; 84439; 84443; 85025

== ENCOUNTER → 2024-11-10 | Outpatient (CLI) | payer MEDICARE, SELFPAY ==
--- NOTE | 2024-11-10 14:50 | BI_ITS ---
EXAM: SCRN MAMM (CAD)W/PASHA BILAT DATE: 11/10/2024 CLINICAL HISTORY: F, Age 64 y/o , SCREENING No family history. TECHNIQUE: Procedure Code: [id number] Modality: MG Procedure: SCRN MAMM (CAD)W/PASHA BILAT COMPARISON: Prior exam(s) dated no prior study available for comparison at this time.. FINDINGS: TISSUE DENSITY: The breasts are heterogeneously dense, which may obscure small masses. Bilateral Breast Mammographic Findings: No significant masses, calcifications or other abnormalities are identified. Small benign-appearing bilateral axillary lymph nodes No suspicious masses, areas of developing architectural distortion, or suspicious calcifications. BI/SCRN MAMM (CAD)W/PASHA BILAT IMPRESSION: Unremarkable screening mammogram. OVERALL FINAL ASSESSMENT BI-RADS 2: BENIGN RECOMMENDATION: Routine annual follow-up in 1 Year Additional Recommendation none A letter with findings and recommendations will be mailed to the patient. Reading Location: [place] [id number]
--- NOTE | 2024-11-10 14:50 | BD_ITS ---
PROCEDURE: DEXA BONE DENSITY STUDY 11/10/2024 REASON FOR EXAM: F, age 64 y/o . TECHNIQUE: Procedure Code: BDDBD Modality: DX Procedure: DEXA BONE DENSITY STUDY COMPARISON: None. FINDINGS: BMD and T-SCORES Lumbar spine: 0.626 g/cm2, T-score -3.8 Levels: L1 through L4 . Left femoral neck: 0.511 g/cm2, T-score -3.0 Left total hip: 0.589 g/cm2, T-score -2.9 Right femoral neck: 0.605 g/cm2, T-score -2.2 Right total hip: 0.577 g/cm2, T-score -3.0 The World Health Organization has defined the following categories based on bone density: Normal bone density: T-score equal to or greater than -1.0 Osteopenia: T-score between -1.0 and -2.5 Osteoporosis: T-score equal to or less than -2.5 FRAX (or Comparable) Fracture Risk Assessment: 10 Year Probability of Fracture: Major Osteoporotic Fracture: 19% Hip Fracture: 3.2% (Note: FRAX is not to be reported in setting of normal range bone density, osteoporosis on DEXA, known history of osteoporosis, prior osteoporotic hip or vertebral fracture, or for any patient undergoing pharmacological treatment for bone loss.) The National Osteoporosis Foundation (NOF) recommends pharmacological treatment for patients with a FRAX 10-year risk of 3% or higher for a hip fracture, or 20% or higher for a major osteoporotic fracture, to prevent osteoporosis and reduce fracture risk. The patient does meet the pharmacological treatment recommendations for prevention of osteoporosis. 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 Recommend follow-up as clinically warranted. Reading Location: [id number]
== END | disposition home or self-care (01) ==
LOC: OPBD 14:49
PROVIDERS: PCP Family Medicine; Referring Provider Family Medicine; Visit Provider Family Medicine
DX: Z00.00 Encounter for general adult medical examination without abnormal findings (principal); Z12.31 Encounter for screening mammogram for malignant neoplasm of breast; Z78.0 Asymptomatic menopausal state
CPT/HCPCS: 77063; 77067; 77080

== ENCOUNTER → 2024-11-19 | Outpatient (CLI) | payer MEDICARE, SELFPAY ==
[2024-11-19 18:19] LABS: AST(SGOT) 27 U/L (<=31); Alanine Aminotransfer ALT/SGPT 45 U/L (<=34); Albumin, Serum 4.6 g/dL (3.4-4.8); Alkaline Phosphatase 88 U/L (35-104); Anion Gap 13 (5-15); BUN 16 mg/dL (4-19); BUN/Creat Ratio 25.5 RATIO (10-20); Calcium,Total 9.6 mg/dL (7.6-11.0); Carbon Dioxide 23.6 mmol/L (21.0-32.0); Chloride 100 mmol/L (98-108); Globulin 2.6 g/dL (2.2-4.2); Glucose 87 mg/dL (70-99); Potassium 4.2 mmol/L (3.3-5.1); Vitamin D,25 Hydroxy 25.8 ng/mL (30-100)
== END | disposition home or self-care (01) ==
LOC: MFPLAB 14:38
PROVIDERS: PCP Family Medicine; Referring Provider Family Medicine; Visit Provider Family Medicine
DX: M81.0 Age-related osteoporosis without current pathological fracture (principal)
CPT/HCPCS: 36415; 80053; 82306